=== PATIENT | male | born 1985 | race Caucasian/White ===

== ENCOUNTER 2019-09-15 17:13 | Outpatient (CLI) | payer OTHER, SELFPAY ==
--- NOTE | 2019-09-15 17:55 | XRR_ITS ---
PROCEDURE INFORMATION: Exam: XR Abdomen, 1 View Exam date and time: 09/15/2019 5:58 PM Age: 34 years old Clinical indication: Other: Left sided flank pain; Additional info: Left sided back pain TECHNIQUE: Imaging protocol: XR of the abdomen. Views: Frontal supine view of the abdomen. 1 View. COMPARISON: No relevant prior studies available. FINDINGS: Gastrointestinal tract: Prominent stool and mild small bowel dilatation. Partial obscuration of the renal fossa by bowel gas and stool. Vasculature: 3 mm nodular calcification overlying the inferior right pelvis, presumably vascular in etiology. Bones/joints: Mild degenerative change. XR/XR KUB [id number] IMPRESSION: Prominent stool and mild small bowel dilatation.
== END 2019-09-15 17:14 | disposition home or self-care (01) ==
LOC: RAD 17:15
PROVIDERS: PCP Nurse Practitioner Family; Visit Provider Nurse Practitioner Family
DX: M54.9 Dorsalgia, unspecified (principal)
CPT/HCPCS: 74018; 81000; 87086

== ENCOUNTER → 2023-06-04 08:48 | Outpatient (BNVA) | payer OTHER, SELFPAY | PROVIDERS: Visit Provider Nurse Practitioner Family | DX: R05.9 Cough, unspecified (principal) | CPT/HCPCS: 87400 ==

== ENCOUNTER 2024-04-08 11:54 | Outpatient (CLI) | payer OTHER, SELFPAY ==
--- NOTE | 2024-04-08 11:59 | XRR_ITS ---
PROCEDURE INFORMATION: Exam: XR Cervical Spine Exam date and time: 04/08/2024 12:06 PM Age: 39 years old Clinical indication: Neck pain; Patient HX: Bilateral numbness and tingling in both arms, no acute injury, x3 months worsening; Additional info: Numbness tingling in both arms TECHNIQUE: Imaging protocol: Radiologic exam of the cervical spine. Views: 6 or more views. COMPARISON: CR XR thoracic spine 3V* [id number] 04/08/2024 12:06 PM FINDINGS: Bones/joints: Straightening of the cervical spine in neutral position. No evidence of instability in flexion or extension imaging. Vertebral body and intervertebral disc heights are maintained. Oblique views demonstrate mild bilateral C3-C4 neural foraminal narrowing secondary to uncovertebral hypertrophy. Soft tissues: No significant soft tissue pathology. XR/XR cervical spine min 6V [id number] IMPRESSION: No evidence of acute pathology or instability. Straightening of the spine in neutral position. Mild bilateral C3-C4 neural foraminal narrowing.
--- NOTE | 2024-04-08 11:59 | XRR_ITS ---
PROCEDURE INFORMATION: Exam: XR Thoracic Spine Exam date and time: 04/08/2024 12:06 PM Age: 39 years old Clinical indication: Pain in thoracic spine; Patient HX: Bilateral numbness and tingling in both arms, no acute injury, x3 months worsening; Additional info: Dorsalgia TECHNIQUE: Imaging protocol: Radiologic exam of the thoracic spine. Views: 3 views. COMPARISON: CR XR cervical spine min 6V [id number] 04/08/2024 12:06 PM FINDINGS: Bones/joints: Alignment within normal limits. Mild degenerative disc disease greatest in the lower thoracic spine. Mild wedge morphology lower thoracic vertebral body without definite acute fracture given limited visualization. No acute fracture or dislocation. Soft tissues: No significant soft tissue pathology. XR/XR thoracic spine 3V* [id number] IMPRESSION: Mild degenerative change. Mild wedge morphology lower thoracic vertebral body without definite acute fracture given limited visualization.
== END 2024-04-08 11:55 | disposition home or self-care (01) ==
LOC: RAD 11:56
PROVIDERS: PCP Nurse Practitioner Family; Visit Provider Nurse Practitioner Family
DX: R20.0 Anesthesia of skin (principal); M54.9 Dorsalgia, unspecified
CPT/HCPCS: 72052; 72072

== ENCOUNTER 2024-06-17 10:20 | Outpatient (CLI) | payer OTHER, SELFPAY ==
--- NOTE | 2024-06-17 10:25 | XR_ITS ---
WS: [id number] Thoracic spine, 3 views, 06/17/2024 Clinical Data: MID BACK PAIN/DORSALGIA Comparison: Thoracic spine, 04/08/2024 Findings: No compression fractures are seen. There is wedge deformity of the T12 vertebral body unchanged. The disc heights are normal. There is minimal anterior spurring T8-T12. The paravertebral regions are unremarkable. XR/XR thoracic spine 3V* [id number] Impression: Minimal anterior wedging T12 with spurring T8-T12.
--- NOTE | 2024-06-17 10:25 | XR_ITS ---
WS: [id number] Lumbar spine, 3 views, 06/17/2024 Clinical Data: LOW BACK PAIN Comparison: None. Findings: No compression fractures or subluxation is seen. No disc space narrowing is seen. The transverse processes and SI joints are normal. XR/XR lumbar spine 2-3V* [id number] Impression: Negative lumbar spine.
== END 2024-06-17 10:21 | disposition home or self-care (01) ==
LOC: RAD 10:22
PROVIDERS: PCP Nurse Practitioner Family; Visit Provider Nurse Practitioner Family
DX: M54.50 Low back pain, unspecified (principal); M46.04 Spinal enthesopathy, thoracic region
CPT/HCPCS: 72072; 72100